=== PATIENT | male | born 1995 | race Caucasian/White ===

== ENCOUNTER → 2017-09-12 | Outpatient (CLI) | payer OTHER ==
[~2017-09-12] MED LIST: DICYCLOMINE HCL20 MG PO; FLONASE 50 MCG16 GM; HYOSCYAMINE0.125 M1 PO; KAPIDEX60 MG PO; METRONIDAZOLE500 MG PO; MOTRIN800 MG PO; OMEPRAZOLE40 MG PO; ZOFRAN4 MG PO
--- NOTE | 2017-09-15 13:37 | RADIOLOGY REPORT PS360 ---
MRI-UP EXT ANY JNT W/O-LT MRI left shoulder Ordering MRI left shoulder Physician: Roshan Ram MD Patient Age: 21 years: Male HISTORY: PAIN IN LT SHOULDER, RECURRENT DISLOCATION Previous shoulder dislocations 4 times past 1.5 years. No known recent injury TECHNIQUE: Multiplanar multisequence imaging 1.5T MR COMPARISON :Plain films right shoulder 09/02/2016 FINDINGS . Slightly shallow osseous glenoid... On the sagittal images suggestion very slight flattening anterior inferior aspect osseous glenoid (6-9 o'clock position sagittal view.). May reflect a very very minor slight impacted injury/spectrum of Bankart injury. No osseous fragment or Well-defined defect along anterior osseous glenoid is identified but may be difficult to appreciate on the current axial images.-however based on the sagittal views I continue suspect there is subtle impacted flattening at anterior inferior glenoid.. (. If Greater detail is required here we could attempt a repeat axial image with slightly different image plane & additional T1 image sequence which could could yield greater detail here., Most definitive here is post arthrogram MR or CT may also be considered if required greater detail here, if it would change management consultant... Nonetheless based on current sagittal images favor subtle impacted appearance aof anterior inferior osseous glenoid contour. This could be compatible with history of recurrent anterior dislocations. . There also appears Hill-Sachs deformity. Subtle focal cavity superior humeral head posteriorly.. On sagittal images Slight flattened valley right defect this defect at the posterior superior humeral head seen on. Sagittal image 8, coronal image 5-8. (This Particularly evident on the thin section coronal additional coronal image set used for cartilage evaluation.) No joint effusion is evident. Upper normal joint fluid Rotator cuff is intact with no tear.qq .. Supraspinatus tendon is intact. Infraspinatus and supraspinatus appear intact. The muscles of rotator cuff well-developed. There is a downward sloping acromion on coronal view with narrowing of subacromial space beneath tip acromion. 6- 6.5 mm. This Could contribute to impingement symptoms if present. On the supraspinatus tendon however beneath this area appears intact. There is no significant fluid at subdeltoid subacromial bursa. The AC joint appears intact. There is some signal beneath the superior labrum but this most likely reflects normal fibrous undercutting rather SLAP Lesion.. Do not see significant fluid signal here to further support the latter. Correlation clinically required IMPRESSION 1. Slight Shallow glenoid. 2. Hill-Sachs deformity reflecting anterior dislocations 3. On sagittal images note slight flattening of the contour along anterior inferior osseous glenoid,- which likely reflects a minor impacted type osseous glenoid injury/ Bankart type injury. No discrete separate fragment can be identified on current images. Note comments in text.. Very Diminutive anterior glenoid labrum, reflecting sequela from old anterior dislocation injury to this region as well (. If require greater detail here post arthrogram MR or CT may be of benefit) 4.. Downward sloping acromion with narrowed subacromial space beneath tip of acromion. Could contribute to impingement symptoms. However the rotator cuff appears intact with no significant findings,
== END ==
LOC: RAD 13:34
DX: M25.512 Pain in left shoulder (principal); M24.412 Recurrent dislocation, left shoulder